=== PATIENT | male | born 1990 | race African-American/Black ===

== ENCOUNTER 2017-04-26 11:28 | Emergency (ER) | payer SELFPAY ==
[2017-04-26 11:42] VITALS: BP 135/110
[2017-04-26] MEDS ORDERED: Alum Hydrox/Mag Hydrox/Simeth 30 ML, Lidocaine 2% 15 ML PO ONE ×2 (11:57)
[2017-04-26] MEDS ORDERED: Dextrose 5%-0.9% NaCl 1,000 ML IV SCH (12:00)
--- NOTE | 2017-04-26 12:00 | EDM.PDOC ---
ED HPI GENERAL MEDICAL PROBLEM - General Chief Complaint: Headache Stated Complaint: HEADACHE FEVER Time Seen by Provider: 04/26/17 11:55 Source of Information: Reports: Patient History Limitations: Reports: No Limitations - History of Present Illness INITIAL COMMENTS - FREE TEXT/NARRATIVE: 27-year-old male presents to the ED with reported fever for the last 3 days and intermittent chills. Minimal cough production. Very sore throat painful to swallow i.e. odynophagia. He points to pain at the suprasternal notch and mid chest as the source of his pain with swallowing. By history has terrible reflux disease and does not take any medication for this. He has nevere been obstructed by a food bolus in the past. . Patient recognizes that he has a chronic sinusitis and postnasal drip. States he has a headache but no really facial pain syndrome. No nausea or vomiting. No diarrhea. Patient states this morning it hurts to breathe--central chest, sharp and stabbing or pleuritic. He feels like he got a piece of acetaminophen tablet stuck in his mid 5 food pipe 2 days ago and still has pain with swallowing and central chest. Onset: Gradual Onset Date: 04/22/17 Duration: Day(s):, Constant, Getting Worse Location: Reports: Head, Chest, Generalized (Generalized aches and pains with fever and chills.) Quality: Reports: Ache Severity: Moderate Improves with: Reports: None Worsens with: Reports: Breathing Context: Denies: Activity, Exercise, Lifting, Sick Contact, Trauma, Other Associated Symptoms: Reports: Loss of Appetite, Other (Mild postnasal drip.). Denies: Diaphoresis, Fever/Chills, Malaise, Nausea/Vomiting, Rash, Shortness of Breath, Syncope Treatments [employer]: Reports: Acetaminophen Throat Pain Score (Numeric/FACES): 8 - Related Data Allergies Allergy/AdvReac Type Severity Reaction Status Date / Time No Known Allergies Allergy Verified 04/26/17 11:39 Home Meds: Home Meds Doxycycline [Vibramycin] 100 mg PO Q12HR #20 cap 04/26/17 [Rx] Past Medical History - Past Health History Medical/Surgical History: Denies Medical/Surgical History Gastrointestinal History: Reports: GERD Social & Family History - Tobacco Use Smoking Status *Q: Never Smoker - Recreational Drug Use Recreational Drug Use: No ED ROS GENERAL - Review of Systems Review Of Systems: See Below Constitutional: Reports: Fever, Chills, Malaise, Weakness, Fatigue, Decreased Appetite, Other (Odynophagia). Denies: Weight Loss HEENT: Reports: Sinus Problem (Chronically aware postnasal drip.) Respiratory: Reports: Shortness of Breath, Pleuritic Chest Pain (Pain with deep inspiration 90 pleuritic component to chest pain), Cough (Minimally productive however.) Cardiovascular: Reports: Chest Pain (See history of present illness). Denies: Blood Pressure Problem, Claudication (His blood pressure is very high at the time of examination but is not known to be hypertensive.), Dyspnea on Exertion, Edema, Lightheadedness, Orthopnea, Palpitations GI/Abdominal: Reports: Difficulty Swallowing (See history of present illness), Other : Reports: No Symptoms (By history has significant GERD.) Musculoskeletal: Reports: No Symptoms Skin: Reports: No Symptoms Neurological: Reports: Dizziness, Headache. Denies: Numbness, Pre-Existing Deficit, Seizure, Syncope, Tingling, Tremors, Trouble Speaking, Difficulty Walking, Weakness Psychiatric: Reports: No Symptoms Hematologic/Lymphatic: Reports: No Symptoms Immunologic: Reports: No Symptoms - Physical Exam Exam: See Below Exam Limited By: No Limitations General Appearance: Alert, WD/WN, No Apparent Distress, Other (Does feel mildly warm to palpation. Nurses got temperature 36.2.) Eye Exam: Bilateral Eye: Normal Inspection Ears: Normal TMs Nose: Nasal Swelling (Patient has marked swelling of the nasal turbinates particular the middle terminates in superior turbinate on the right side completely occluding his nares. Could not visualize any nasal polyps. He has evidence of chronic allergic rhinitis.) Throat/Mouth: Normal Teeth, Normal Voice, Other (Diffusely erythematous without any exudates on the tonsils or posterior oropharynx. He has some erythema and hypertrophy of his gingiva right upper) Head Exam: Atraumatic, Normocephalic ( mouth. No aphthous ulcers within the oral cavity) Neck: Normal Inspection, Supple, Non-Tender, Full Range of Motion. No: Lymphadenopathy (L), Lymphadenopathy (R) Respiratory/Chest: No Respiratory Distress, Lungs Clear, Normal Breath Sounds, No Accessory Muscle Use, Prolonged Expiration Cardiovascular: Normal Peripheral Pulses, Regular Rate, Rhythm, No Edema, No Gallop, No Murmur GI/Abdominal: Normal Bowel Sounds, Soft, Non-Tender, No Organomegaly, No Abnormal Bruit, No Mass Neuro Exam (Abbreviated): Alert, Oriented, CN II-XII Intact, Normal Cognition, Normal Gait Back Exam: Normal Inspection, Full Range of Motion Extremities: Normal Inspection, Normal Range of Motion, Non-Tender, Normal Capillary Refill Psychiatric: Normal Affect, Normal Mood Skin Exam: Warm, Dry, Intact, Normal Color, No Rash Course - Vital Signs Last Recorded V/S: Last Vital Signs Temp 36.2 C 04/26/17 11:39 Pulse 89 04/26/17 11:39 Resp BP 135/110 H 04/26/17 11:39 Pulse Ox 100 04/26/17 11:39 - Orders/Labs/Meds Labs: Laboratory Tests 04/26/17 04/26/17 04/26/17 Range/Units 12:10 12:10 12:10 WBC 3.37 L (4.23-9.07) K/mm3 RBC 6.07 (4.63-6.08) M/mm3 Hgb 17.1 (13.7-17.5) gm/L Hct 49.1 (40.1-51.0) % MCV 80.9 (79.0-92.2) fl MCH 28.2 (25.7-32.2) pg MCHC 34.8 (32.2-35.5) g/dl RDW Std Deviation 41.2 (35.1-43.9) fL Plt Count 108 L (163-337) K/mm3 MPV 12.0 (9.4-12.3) fl Neutrophils % (Manual) 62 H (40-60) % Band Neutrophils % 6 (0-10) % Lymphocytes % (Manual) 22 (20-40) % Atypical Lymphs % 0 % Monocytes % (Manual) 7 (2-10) % Eosinophils % (Manual) 3 (0.8-7.0) % Basophils % (Manual) 0 L (0.2-1.2) Platelet Estimate Adequate RBC Morph Comment Normal Sodium 138 (136-145) mEq/L Potassium 4.4 (3.5-5.1) mEq/L Chloride 102 (98-107) mEq/L Carbon Dioxide 29 (21-32) mEq/L Anion Gap 11.4 (5-15) BUN 13 (7-18) mg/dL Creatinine 1.5 H (0.7-1.3) mg/dL Est Cr Clr Drug Dosing 83.60 mL/min Estimated GFR (MDRD) > 60 (>60) mL/min BUN/Creatinine Ratio 8.7 L (14-18) Glucose 97 (74-106) mg/dL Calcium 9.0 (8.5-10.1) mg/dL Total Bilirubin 0.5 (0.2-1.0) mg/dL AST 55 H (15-37) U/L ALT 104 H (16-63) U/L Alkaline Phosphatase 87 (46-116) U/L C-Reactive Protein 1.8 H* (<1.0) mg/dL Total Protein 8.6 H (6.4-8.2) g/dl Albumin 4.1 (3.4-5.0) g/dl Globulin 4.5 gm/dL Albumin/Globulin Ratio 0.9 L (1-2) H. pylori IgG Antibody Negative (NEGATIVE) Monoscreen (NEGATIVE) 04/26/17 Range/Units 12:10 WBC (4.23-9.07) K/mm3 RBC (4.63-6.08) M/mm3 Hgb (13.7-17.5) gm/L Hct (40.1-51.0) % MCV (79.0-92.2) fl MCH (25.7-32.2) pg MCHC (32.2-35.5) g/dl RDW Std Deviation (35.1-43.9) fL Plt Count (163-337) K/mm3 MPV (9.4-12.3) fl Neutrophils % (Manual) (40-60) % Band Neutrophils % (0-10) % Lymphocytes % (Manual) (20-40) % Atypical Lymphs % % Monocytes % (Manual) (2-10) % Eosinophils % (Manual) (0.8-7.0) % Basophils % (Manual) (0.2-1.2) Platelet Estimate RBC Morph Comment Sodium (136-145) mEq/L Potassium (3.5-5.1) mEq/L Chloride (98-107) mEq/L Carbon Dioxide (21-32) mEq/L Anion Gap (5-15) BUN (7-18) mg/dL Creatinine (0.7-1.3) mg/dL Est Cr Clr Drug Dosing mL/min Estimated GFR (MDRD) (>60) mL/min BUN/Creatinine Ratio (14-18) Glucose (74-106) mg/dL Calcium (8.5-10.1) mg/dL Total Bilirubin (0.2-1.0) mg/dL AST (15-37) U/L ALT (16-63) U/L Alkaline Phosphatase (46-116) U/L C-Reactive Protein (<1.0) mg/dL Total Protein (6.4-8.2) g/dl Albumin (3.4-5.0) g/dl Globulin gm/dL Albumin/Globulin Ratio (1-2) H. pylori IgG Antibody (NEGATIVE) Monoscreen Negative (NEGATIVE) Meds: Medications Discontinued Medications Generic Name Dose Route Start Last Admin Trade Name Freq PRN Reason Stop Dose Admin Al Hydroxide/Mg Hydroxide 30 0 ml 04/26/17 11:57 04/26/17 12:10 ml/ Lidocaine HCl 15 ml PO 04/26/17 11:58 45 ml ONETIME ONE Administration Dextrose/Sodium Chloride 1,000 mls @ 999 mls/hr 04/26/17 12:00 04/26/17 12:20 Dextrose 5%-Normal Saline IV 999 mls/hr ASDIRECTED ERICK Administration Ketorolac Tromethamine 30 mg 04/26/17 12:15 04/26/17 12:19 Toradol IVPUSH 30 mg ONETIME ERICK Administration - Radiology Interpretation Free Text/Narrative:: 27-year-old male presents to the ED with a reported 5 day history of fever with intermittent chills. Does have a minimal cough. He has some odynophagia and he believes sexually part of a acetaminophen pill got stuck mid esophagus 2 days ago. By history has a significant history of gastroesophageal reflux disease and has never taken medication for this. He is never choked or had food get stuck on them however. Starts in his suprasternal notch and present mid central chest with odynophagia. Also component of pain ie. sharp and stabbing with deep breathing. On examination he does have allergic rhinitis with marked swelling of the turbinates bilaterally and would be very prone to sinusitis. Could not identify significant maxillary sinus or ethmoid sphenoid sinus pain on examination. Plan IV D5 normal saline as he has not been eating and drinking well. We will be run at open. Toradol 30 mg IV for pain relief. Will give him a GI cocktail to see be alleviates his odynophagia. Source of fevers not evident since it's been 5 days lab work will be done in this regard. Chest x-ray will be obtained and a urinalysis. Blood cultures were not ordered this time as he is afebrile - Re-Assessments/Exams Free Text/Narrative Re-Assessment/Exam: 04/26/17 13:01 chest x-ray is within normal limits. Patient reports she did get pretty good relief of the chest discomfort after the GI cocktail. 04/26/17 13:03 labs are back and reveal a low white count at 3.37 with 62% neutrophils and 6% bands reported. Hemoglobin is 17.1 with hematocrit of 49.1 suggesting some degree of hemoconcentration. Platelets are 108,000. Sodium 138 potassium 4.4. Creatinine is elevated at 1.5 EGFR is remains greater than 60 BUNs 13. He therefore had does appear to have some underlying kidney disease. CRP is 1.8. H. pylori negative Monospot negative remainder the chemistry was normal. There is still a strong possibility he has sinus infection as a cause of his fever. 04/26/17 13:14 plan I'm going to discharge him home to continue Tylenol 650 mg every 4-6 hours as needed for fever relief. I did place him on antibiotic doxycycline 100 mg twice daily for 10 days to clear up suspect sinus infection. Also going to place him on Prilosec 20 mg bedtime and morning for the week and then once tablet at bedtime only for 6 weeks. Then to adopt a wait and see approach if he has significant dyspepsia heartburn after that he should have follow-up EGD. His H. pylori today was negative. Departure - Departure Time of Disposition: 13:16 Disposition: Home, Self-Care 01 Condition: Fair Clinical Impression: Acute febrile illness, Gastroesophageal reflux disease with esophagitis Sinusitis Qualifiers: Sinusitis location: unspecified location Chronicity: acute Recurrence: not specified as recurrent Qualified Code(s): J01.90 - Acute sinusitis, unspecified - Discharge Information Prescriptions: Doxycycline [Vibramycin] 100 mg PO Q12HR #20 cap Instructions: Fever, Adult, Sinusitis, Adult, [id number] Referrals: Victor Hugo Reynolds Jr, MD [Primary Care Provider] - Forms: ED Department Discharge, ED Return to Work/School Form Additional Instructions: Evaluation in the emergency department today in regards to central chest pain with painful swallowing which we call odynophagia. By history you have severe gastroesophageal reflux disease and likely have significant inflammation of the lining of your food pipe called esophagitis. He appreciated that half a tablet of Tylenol seemed to get stuck correction down the food pipe intermittently well of but it is a fairly benign drug and would dissolve and not likely to cause an ulcer of the food pipe. Source of fever is unclear and lab work left us with the unclear picture as well a normal white count at 3.37 but the differential suggests that there is underlying bacterial infection. Clinically you have sinusitis because of the marked swelling in her nose from allergic rhinitis. Chest x-ray was negative for any pneumonia. The remainder the lab work was normal other than suggesting that she were dehydrated. You did receive a liter of IV fluids while in the ED and Toradol 30 mg for headache relief. But suggested is to continue Tylenol 650 mg every 4-6 hours for fever relief. Certainly break the tablets in half so that they go down a little easier. Antibiotic is to be doxycycline 100 mg twice daily for the next 10 days to clear up suspect sinus infection. Suggest buying Prilosec 20 mg tablets taking 1 in the morning one at bedtime for the next week and then 1 at bedtime only for 42 days to allow the food pipe to heal up. I will leave it up to you whether or not you need to continue this medication if you continue to have heartburn symptoms. If you continue pop in symptoms after 6 weeks of treatment and follow-up with eye surgeon is advised for upper GI endoscopy. Of note test for Helicobacter pylori which causes 94% of ulcers was negative. Also Monospot was negative. This is to make sure that no stricture or ulcerations of the food pipe are evident. Suggest off school tomorrow as well and tentatively return on Thursday.
[2017-04-26] MEDS ORDERED: Ketorolac 30 MG/ML SDV IVPUSH SCH (12:15)
--- NOTE | 2017-04-27 07:57 | CR ---
Chest: Portable view of the chest was obtained. Comparison: No prior chest x-ray. Heart size and mediastinum are within normal limits for the patient's age. Lungs are clear with no acute infiltrates. Bony structures are grossly intact. Impression: 1. Nothing acute is identified on portable chest x-ray. Diagnostic code #1
== END 2017-04-26 13:40 | disposition home or self-care (01) ==
LOC: JD.ED 11:28
DX: K21.0 Gastro-esophageal reflux disease with esophagitis (principal); J01.90 Acute sinusitis, unspecified
CPT/HCPCS: 36415; 71010; 80053; 85025; 86140; 86308; 86677; 96361; 96374; 99284; A9270; J1885; J7042

== ENCOUNTER 2019-09-08 13:37 | Emergency (ER) | payer SELFPAY ==
[2019-09-08 13:54] VITALS: BP 131/79; PULSE 73
--- NOTE | 2019-09-08 14:21 | EDM.PDOC ---
<Alisha Ruiz - Last Filed: 09/08/19 14:14> ED HPI GENERAL MEDICAL PROBLEM - General Chief Complaint: Chest Pain Stated Complaint: SOB/RIB PAIN Time Seen by Provider: 09/08/19 14:03 Source of Information: Reports: Patient History Limitations: Reports: No Limitations - History of Present Illness INITIAL COMMENTS - FREE TEXT/NARRATIVE: 29-year-old male presents with RLQ and mid-sternal chest pain that started two days ago. He states the pain worsens with deep breaths, sitting forward, raising his right arm, and drinking fluids. He took ibuprofen and tylenol two days ago with little relief. The pain ranges from from 4/10-7/10 and is described as achy and sharp. He denies any recent illness or any injury to the chest wall. He used to smoke cigarettes but has recently switched to vaping. He states he is very physically active. He denies nausea, vomiting, diarrhea, constipation, and shortness of breath. Duration: Waxing/Waning Location: Reports: Chest Quality: Reports: Ache, Sharp Severity: Moderate Worsens with: Reports: Breathing, Movement (eating/drinking) Associated Symptoms: Reports: Chest Pain (RUQ and Mid-Sternum ) Right Chest Pain Score (Numeric/FACES): 7 - Related Data Allergies Allergy/AdvReac Type Severity Reaction Status Date / Time No Known Allergies Allergy Verified 09/08/19 13:54 Home Meds: Home Meds Orphenadrine [Norflex] 100 mg PO BID PRN #20 tab 09/08/19 [Rx] Past Medical History - Past Health History Medical/Surgical History: Denies Medical/Surgical History Gastrointestinal History: Reports: GERD ED ROS GENERAL - Review of Systems Review Of Systems: See Below Constitutional: Reports: No Symptoms HEENT: Reports: No Symptoms Respiratory: Reports: No Symptoms Cardiovascular: Reports: Chest Pain (RLQ and mid-sternal). Denies: Dyspnea on Exertion, Lightheadedness, Palpitations GI/Abdominal: Reports: No Symptoms : Reports: No Symptoms Musculoskeletal: Reports: Muscle Pain (RLQ of chest hurts with raising right arm ) Skin: Reports: No Symptoms Neurological: Reports: No Symptoms Psychiatric: Reports: No Symptoms Hematologic/Lymphatic: Reports: No Symptoms Immunologic: Reports: No Symptoms ED EXAM, GENERAL - Physical Exam Exam: See Below Exam Limited By: No Limitations General Appearance: Alert, WD/WN, Mild Distress Respiratory/Chest: No Respiratory Distress, Lungs Clear, Normal Breath Sounds, No Accessory Muscle Use, Other (RLQ chest tenderness, chest pain while sitting forward for the exam ) Cardiovascular: Normal Peripheral Pulses, Regular Rate, Rhythm, No Murmur GI/Abdominal: Normal Bowel Sounds, Soft, Non-Tender, No Organomegaly Back Exam: Normal Inspection, Full Range of Motion Extremities: Normal Inspection, Normal Range of Motion Neurological: Alert, Oriented, Normal Cognition, No Motor/Sensory Deficits Psychiatric: Normal Affect, Normal Mood Skin Exam: Warm, Dry, Intact, Normal Color, No Rash Course - Vital Signs Last Recorded V/S: Last Vital Signs Temp 98.2 F 09/08/19 13:50 Pulse 73 09/08/19 13:50 Resp 18 09/08/19 13:50 BP 131/79 09/08/19 13:50 Pulse Ox 99 09/08/19 13:50 - Orders/Labs/Meds Orders: Active Orders 24 hr Category Date Time Status Chest 2V [CR] Stat Exams 09/08/19 14:13 Ordered Departure - Departure Disposition: Home, Self-Care 01 Clinical Impression: Intercostal muscle strain Qualifiers: Encounter type: initial encounter Qualified Code(s): S29.011A - Strain of muscle and tendon of front wall of thorax, initial encounter - Discharge Information Referrals: PCP,None [Primary Care Provider] - Forms: ED Department Discharge, ED Return to Work/School Form Additional Instructions: You have been evaluated in the ED for your right sided rib pain. Your x-ray demonstrated no sign of a pneumonia or other acute bony abnormalities. Your symptoms are most likely due to a musculoskeletal strain in nature. Please use ice/heat as tolerated to the affected area. You may take Tylenol 500 mg or ibuprofen 600mg q6 hrs for pain relief. Please do so until you have a tolerable level of pain with activity. Do not exceed 4000mg Tylenol or 3200mg ibuprofen in a 24 hour time period. You were also given a prescription for Norflex, a muscle relaxer, please take 1 tab every 12 hours as needed for further muscle spasms. Please return to ED if your symptoms should change or worsen. Sepsis Event Note - Evaluation Sepsis Screening Result: No Definite Risk - Focused Exam Vital Signs: Vital Signs Temp Pulse Resp BP Pulse Ox 09/08/19 13:50 98.2 F 73 18 131/79 99 Date Exam was Performed: 09/08/19 Time Exam was Performed: 14:14 - My Orders Last 24 Hours: My Active Orders 09/08/19 14:13 Chest 2V [CR] Stat - Assessment/Plan Last 24 Hours: My Active Orders 09/08/19 14:13 Chest 2V [CR] Stat <Nisreen Ortega Briseyda - Last Filed: 09/08/19 14:42> Course - Re-Assessments/Exams Free Text/Narrative Re-Assessment/Exam: 09/08/19 14:37 I have read and reviewed the student's HPI and examined the patient and agree with SHALOM Salcedo-student. Patient presents to the ED for evaluation of some right-sided rib cage pain. Upon examining the patient I do believe that his pain is musculoskeletal in nature, his chest x-ray also does not demonstrate any focal abnormalities or acute changes that would suggest any other sort of illness at this time. These reviewed by myself and Dr. Castano. However official radiology read is pending. We will discharge the patient home with a work note so he can have tomorrow off, and some Norflex and have him take some ibuprofen over the weekend see if this does not make it better. Departure - Departure Time of Disposition: 14:39 Condition: Fair - Discharge Information *PRESCRIPTION DRUG MONITORING PROGRAM REVIEWED*: No *COPY OF PRESCRIPTION DRUG MONITORING REPORT IN PATIENT STACIA: No Sepsis Event Note - Focused Exam Date Exam was Performed: 09/08/19 Time Exam was Performed: 14:37
--- NOTE | 2019-09-08 14:45 | CR ---
Chest: Two views of the chest were obtained. Comparison: Prior chest x-ray of 04/26/17. Heart size and mediastinum are normal. Lungs are clear. Bony structures are unremarkable. Impression: 1. Nothing acute is appreciated on two-view chest x-ray. Diagnostic code #1 This report was dictated in [place] Standard Time
== END 2019-09-08 15:00 | disposition home or self-care (01) ==
LOC: JD.ED 13:37
DX: S29.011A Strain of muscle and tendon of front wall of thorax, initial encounter (principal); F17.290 Nicotine dependence, other tobacco product, uncomplicated; X58.XXXA Exposure to other specified factors, initial encounter
CPT/HCPCS: 71046; 71046-26; 99284-25